=== PATIENT | female | born 1960 | race Two or more races ===

== ENCOUNTER → 2024-10-11 | Outpatient (CLI) | payer MEDICAID ==
[~2024-10-11] VITALS: Ht 160 cm; Wt 78.9 kg
[2024-10-11] MEDS: REGADENOSON 0.4 MG/5 ML SYRG IV ONE ×2 (09:21→09:23)
--- NOTE | 2024-10-13 12:19 | DVHSR ---
APPROVED REPORT Exam: Nuclear Stress Test Indication: SOB, Syncope Stress Tech: Catalina Maria Ht: 5 ft 3 in Wt: 174 lbs BSA: 1.82 m2 HR: 59 bpm BP: 132/67 mmHg BMI: 30.81 Rhythm: NSR Medical History Medical History: Hyperthyroidism, asthma, liver disease, [place], Prediabetic Allergies: No known drug allergies Stress Test Details Stress Test: Pharmacologic stress testing performed using 0.4 mg of regadenoson per 5 mL given IV ov er 10 seconds. Reason for pharmacologic stress test: SOB, Syncope. HR Resting HR: 59 bpmMax Heart Rate (APMHR): 157.336780 bpm Max HR Achieved: 104 bpmTarget HR (85% APMHR): 133.209343 bpm % of APMHR: 66.24 Recovery HR: 89 bpm BP Resting BP: 132/67 mmHg Recovery BP: 135/69 mmHg ECG Resting ECG: NSR Clinical Reason for Termination: Completed protocol Nurse Comments Uneventful stress test, completed per protocol Stress ECG Conclusion lvef 71% normal perfusion mild anterior wall defect, no ischemia, image artifact suspected NM EXAM: Myocardial Perfusion REST/STRESS Imaging Protocol: Rest Tc-99m/Stress Tc-99m 1 day Resting Data Rest SPECT myocardial perfusion imaging was performed in supine position 60 minutes following the int ravenous injection of 12.7 mCi of Tc-99m Sestamibi. Time of rest injection: 0800 Time of rest imagin Administration Route: IV Administration Site: Right Arm Pharmacologic Stress Pharmacologic stress test was performed by injecting Regadenoson 0.4 mg IV push followed by the intra venous injection of 31.3 mCi of Tc-99m Sestamibi. Time of stress injection: 09 Time of stress imagin Administration Route: IV Administration Site: Right Arm Gated Stress SPECT was performed 60 minutes after stress injection. The images were gated to evaluate regional wall motion and calculate left ventricular ejection fracti on. Stress only was performed in the Supine position. Nuclear Conclusion Nuclear Findings: negative for ischemia lvef 71% normal perfusion mild anterior wall defect, no ischemia, image artifact suspected
== END | disposition home or self-care (01) ==
LOC: XYW 07:10
PROVIDERS: ATTEND Internal Medicine
DX: R06.02 Shortness of breath (principal); R55 Syncope and collapse; J45.909 Unspecified asthma, uncomplicated; K76.9 Liver disease, unspecified; E05.90 Thyrotoxicosis, unspecified without thyrotoxic crisis or storm; R73.03 Prediabetes; I21.3 ST elevation (STEMI) myocardial infarction of unspecified site
CPT/HCPCS: 78452; 93017; A9500; J2785